=== PATIENT | female | born 1995 | race African-American/Black ===

== ENCOUNTER 2018-02-04 11:27 | Emergency (ER) | payer SELFPAY ==
[~2018-02-04] VITALS: Ht 152.4 cm; Wt 53.5 kg
[2018-02-04 11:36] VITALS: BP 117/77
== END 2018-02-04 11:59 | disposition home or self-care (01) ==
LOC: ER 11:36
DX: S13.4XXA Sprain of ligaments of cervical spine, initial encounter (principal); V49.9XXA Car occupant (driver) (passenger) injured in unspecified traffic accident, initial encounter; Y93.89 Activity, other specified; Y92.413 State road as the place of occurrence of the external cause; Y99.8 Other external cause status
CPT/HCPCS: 99283; A4606; Z7610